=== PATIENT | female | born 1980 | race Caucasian/White ===

== ENCOUNTER 2024-02-16 12:57 | Emergency (ER) | payer OTHER, SELFPAY ==
[2024-02-16] VITALS (13 sets, daily range): BP systolic 63–91; BP diastolic 39–62; PULSE 56–64; RESP 13–64; TEMP 36.3–36.7; O2SAT 95–100
--- NOTE | ~2024-02-16 | XR_ITS ---
EXAMINATION: XR chest 2V DATE: 02/16/2024 14:45 INDICATION: Syncope. TECHNIQUE: Frontal and lateral views of the chest were obtained. COMPARISON: None. FINDINGS: There is no pneumonia, pleural effusion, or pneumothorax. The heart size is normal. IMPRESSION: 1. No acute cardiopulmonary disease. Reviewed, dictated and finalized at location A.
--- NOTE | 2024-02-16 13:05 | ECG_ITS ---
Test Date: 2024-02-16 13:30:43 Measurements Intervals [place] Rate: 61 P: 45 TN: 134 QRS: 73 QRSD: 88 T: 66 QT: 433 QTc: 436 Interpretive Statements SINUS RHYTHM No previous ECG available for comparison Electronically Signed On 02-17-2024 10:32:36 CDT by Rosaura Velazquez M.D.
[2024-02-16 13:08] LABS: Glucose Point of Care 176 mg/dl (65-105)
[2024-02-16 13:23] LABS: Basophils Absolute Auto 0.1 K/mm3 (0.0-0.1); Basophils Percent Auto 0.6 % (0.2-1.2); Eosinophils Absolute Auto 0.1 K/mm3 (0-0.3); Eosinophils Percent Auto 1.3 % (0-4.4); Hematocrit 31.9 % (37.0-47.0); Immature Granulocyte Absolute 0.05 K/mm3 (0.00-0.031); Immature Granulocyte Percent A 0.5 % (0-0.5); Lymphocytes Absolute Auto 2.87 K/mm3 (0.9-3.2); Lymphocytes Percent Auto 28.5 % (18.3-44.2); Mean Corpuscular HGB Conc 31.3 g/dl (32-36); Mean Corpuscular Hemoglobin 25.9 pg (26-34); Mean Corpuscular Volume 82.6 fl (80-100); Monocytes Absolute Auto 0.7 K/mm3 (0.1-0.6); Monocytes Percent Auto 6.7 % (2.6-8.5); Neutrophils Absolute Auto 6.3 K/mm3 (1.3-6.7); Neutrophils Percent Auto 62.4 % (45.5-73.1); Platelet Count Result 340 k/mm3 (150-375); Red Blood Count 3.86 M/mm3 (4.2-5.4); Red Cell Distribution Width 14.6 % (11.5-14.5); White Blood Count 10.1 K/mm3 (4.5-10.0)
[2024-02-16 13:37] LABS: Alanine Aminotransferase 15 U/L (6-35); Albumin Level 3.5 g/dL (3.5-5.1); Alkaline Phosphatase 86 U/L (38-126); Anion Gap 9 mmol/L (4-12); Aspartate Amino Transferase 26 U/L (14-36); Bilirubin,Total 0.2 mg/dL (0.2-1.3); Blood Urea Nitrogen 20 mg/dL (7-17); Calcium 8.3 mg/dL (8.4-10.2); Carbon Dioxide 21 mmol/L (22-30); Chloride 98 mmol/L (98-107); Estimated CRCL calculation 27 ml/min; Estimated Glomerular Filt Rate 30; Glucose 139 mg/dL (65-110); Potassium 3.8 mmol/L (3.4-5.0); Sodium 128 mmol/L (137-145)
--- NOTE | 2024-02-16 13:38 | ED.SYNCOPE ---
HPI - Syncope General Chief Complaint: Syncope Stated Complaint: mult falls Time Seen by Provider: 02/16/24 13:01 History of Present Illness HPI narrative: Patient is a 43-year-old female with a history of polysubstance use disorder, hypertension presenting with syncope. Patient was checking into [facility] and they were Breathalyzer in her. She states that when she stood up from a sitting position she felt very lightheaded and diaphoretic. She then had a syncopal episode. Patient states that she has not been drinking any water or eating. She was doing crack until yesterday. She did have some marijuana today. She denies any pain. Related Data Allergies Allergy/AdvReac Type Severity Reaction Status Date / Time No Known Allergies Allergy Verified 02/16/24 13:06 Review of Systems Review of Systems: All systems reviewed & are unremarkable except as noted in HPI and below Exam Narrative: GENERAL: Disheveled, appears chronically unwell HEAD: Normocephalic, atraumatic. EYES: PERRLA and EOMI. ENT: Poor dentition Mucous membranes dry. NECK: Supple. CHEST: Clear to auscultation. No respiratory distress. HEART: Regular rate and rhythm. ABDOMEN: Soft, nontender, nondistended EXTREMITIES: Normal range of motion. No edema. SKIN: Warm, dry, no rash. NEURO: No focal deficits. Alert and oriented x3. PSYCH: Normal mood and affect. Course Vital Signs Vital signs: Vital Signs Temperature 97.6 F 02/16/24 13:06 Pulse Rate 64 02/16/24 13:06 Respiratory Rate 16 02/16/24 13:06 Blood Pressure 73/39 L 02/16/24 13:06 Pulse Oximetry 96 02/16/24 13:06 Temperature 98.1 F 02/16/24 20:16 Pulse Rate 64 02/16/24 20:16 Respiratory Rate 16 02/16/24 20:16 Blood Pressure 91/62 L 02/16/24 20:16 Pulse Oximetry 99 02/16/24 20:16 Oxygen Delivery Room Air 02/16/24 14:40 MDM - Syncope MDM Narrative Medical decision making narrative: 43-year-old female presenting after a syncopal episode. Patient is hypotensive on arrival 70 systolic. She looks very dry. Fluids are ongoing. Creatinine 1.8, BUN 20, sodium 120. Patient within use a soft pressures despite a couple L. 2 more L were ordered. Patient's pressures are coming up. Patient is asking to leave. She wants to go home. Patient ambulated to the restroom without difficulty. pressures are still the soft in the 90s over 60s with the patient is insisting upon leaving. Advised very close PCP follow-up and aggressive oral rehydration. Patient discharged in stable condition. Differential Diagnosis Differential diagnosis: Likely syncope due to orthostatic hypotension and dehydration Medical Records Attestation: I reviewed the patient's medical records. Lab Data Attestation: I reviewed the patient's lab results. 02/16/24 13:16 02/16/24 13:16 Labs: Lab Results 02/16/24 02/16/24 02/16/24 Range/Units 13:06 13:16 13:56 WBC 10.1 H (4.5-10.0) K/mm3 RBC 3.86 L (4.2-5.4) M/mm3 Hgb 10.0 L (12.0-15.0) g/dL Hct 31.9 L (37.0-47.0) % MCV 82.6 (80-100) fl MCH 25.9 L (26-34) pg MCHC 31.3 L (32-36) g/dl RDW 14.6 H (11.5-14.5) % Plt Count 340 (150-375) k/mm3 MPV 8.0 (7.4-10.4) fl Immature Gran % (Auto) 0.5 (0-0.5) % Neut % (Auto) 62.4 (45.5-73.1) % Lymph % (Auto) 28.5 (18.3-44.2) % Falls % (Auto) 6.7 (2.6-8.5) % Eos % (Auto) 1.3 (0-4.4) % Baso % (Auto) 0.6 (0.2-1.2) % Lymph # (Auto) 2.87 (0.9-3.2) K/mm3 Falls # (Auto) 0.7 H (0.1-0.6) K/mm3 Eos # (Auto) 0.1 (0-0.3) K/mm3 Baso # (Auto) 0.1 (0.0-0.1) K/mm3 Abs Immat Gran (auto) 0.05 H (0.00-0.031) K/mm3 Absolute Neuts (auto) 6.3 (1.3-6.7) K/mm3 Absolute Nucleated RBC 0.000 (0.0-0.012) K/mm3 Nucleated RBC % 0.0 (0.0-0.2) % Sodium 128 L (137-145) mmol/L Potassium 3.8 (3.4-5.0) mmol/L Chloride 98 (98-107) mmol/L Carbon Dioxide 21 L (22-30) mmol/L A
[2024-02-16] MEDS: SODIUM CHLORIDE 0.9% IV 1,000 ML 999 ML IV CONT ×4 (14:00→18:21)
[2024-02-16 14:15] LABS: Ethanol < 10 mg/dL (<10)
[2024-02-16] MEDS: NICOTINE (*PBKC) 14 MG PATCH 1 PATCH TRANSDERM (14:39)
[2024-02-16 17:36] LABS: Amphetamine Screen Urine Negative (Negative); Barbiturate Screen Urine Negative (Negative); Benzodiazepines Screen Urine Negative (Negative); Cannabinoid Screen Urine Positive (Negative); Cocaine Screen Urine Positive (Negative); Methadone Screen Urine Negative (Negative); Opiate Screen Urine Negative (Negative); Phencyclidine Screen Urine Negative (Negative)
[2024-02-16 18:21] LABS: Add Urine Microscopic? YES; Appearance Urine Cloudy (Clear); Bacteria Urine 2+ /hpf; Bilirubin Urine Negative (Negative); Blood Urine Negative (Negative); Color Urine Yellow (Yellow); Glucose Urine UA Trace mg/dL (Negative); Ketones Urine Negative (Negative); Leukocyte Esterase Ur Negative LEU/UL (Negative); Need Manual Microscopic Reviewed; Nitrate Urine Negative (Negative); Non Pathogenic Casts 0-2; Protein Urine Negative (Negative); RBC Urine 0-2 /hpf (0-2); Specific Grav Ur 1.009 (1.001-1.035); Squamous Epithelial Cell Urine Moderate /hpf (Few); Urobilinogen Urine 0.2 mg/dL (<2.0); pH Urine 5.5 (5.0-9.0)
--- NOTE | 2024-02-16 18:31 | PC.NURSE ---
Manual pressure 82/58. Dr Og aware.
== END 2024-02-16 20:18 | disposition home or self-care (01) ==
PROVIDERS: Emergency Provider Emergency Medicine
DX: I95.1 Orthostatic hypotension (principal); E86.0 Dehydration; I10 Essential (primary) hypertension
CPT/HCPCS: 36415; 71046; 80053; 80307; 81001; 82948; 85025; 87086; 93005; 96360; 96361; 99284; A9270; J7030